=== PATIENT | female | born 2000 | race Caucasian/White ===

== ENCOUNTER 2020-09-10 20:09 | Emergency (ER) | payer OTHER, SELFPAY ==
--- NOTE | ~2020-09-10 | XR_ITS ---
EXAMINATION: XR ANKLE, LEFT CLINICAL INFORMATION: Fall COMPARISON: None TECHNIQUE: 4 plain film views of the left ankle. FINDINGS: Mild soft tissue swelling about the ankle slightly more so laterally. Underlying bony structures are unremarkable. No acute fracture or dislocation seen. Ankle mortise appears intact. XR/XR ankle LT 2V IMPRESSION: Soft tissue swelling but no acute bony abnormality.
[2020-09-10 20:52] VITALS: BP 126/68; PULSE 72; RESP 16; TEMP 36.7; O2SAT 95; BMI 29.7
--- NOTE | 2020-09-10 22:58 | ED_ITS ---
HPI - Extremity Injury (Lower) General Chief Complaint: Extremity Injury, Lower Stated Complaint: Fall Ankle Injury/Work Time Seen by Provider: 09/10/20 22:58 Related Data Allergies Allergy/AdvReac Type Severity Reaction Status Date / Time No Known Allergies Allergy Verified 09/10/20 20:56 [No Known Allergies*] Review of Systems Review of Systems: Constitutional : No Weight loss, No Fever, No Chills, No Night Sweats, No Fatigue, No Malaise ENT/Mouth : No Hearing loss, No Ear Pain, No Nasal Congestion, No Sinus Pain, No Hoarseness, No sore throat, No Rhinorrhea, No Swallowing Difficulty Eyes: No Eye Pain, No Swelling, No Redness, No Foreign Body, No Discharge, No Vision Changes Cardiovascular : No Chest Pain, No SOB, No Dyspnea on Exertion, No Orthopnea, No Edema, No Palpitations Respiratory : No Cough, No Sputum, No Wheezing, No Smoke Exposure, No Dyspnea Gastrointestinal : No Nausea, No Vomiting, No Diarrhea, No Constipation, No abdominal Pain, No Hematochezia, No Melena Genitourinary : no irregular bleeding, No Dysuria, No Urinary Frequency, No Hematuria, No Urinary Incontinence, No Urgency, No Flank Pain, No Urinary Flow Changes, No Hesitancy Musculoskeletal : Ankle pain, No Myalgias, No Joint Swelling Skin : No Skin Lesions, No rash Neuro : No Weakness, No Numbness, No Paresthesias, No Loss of Consciousness, No Dizziness, No Headache Psych : No Anxiety/Panic, No Depression, No SI/HI/AH/VH, No Social Issues, Heme/Lymph: No Bruising, No Bleeding,No Lymphadenopathy Endocrine : No Polyuria, No Polydipsia, No Temperature Intolerance Yes all other systems are reviewed and are negative [facility] Past Medical History Medical History (Updated 09/10/20 @ 23:32 by Diane Fairchild [facility]) No known health problems Social History Social History Advance Directives: No Advance Directives Information Provided: No Patient : No Physical Exam Vital Signs: Vital Signs: Last Vital Signs Temp 98.0 F 09/10/20 20:52 Pulse 72 09/10/20 20:52 Resp 16 09/10/20 20:52 BP 126/68 09/10/20 20:52 Pulse Ox 95 09/10/20 20:52 Body Mass Index 29.7 Const: General: healthy appearing, no acute distress and well developed Nutritional Appearance: well nourished Orientation/consciousness: patient oriented x3 Neck: Neck: Yes normal visual inspection, Yes full ROM and Yes trachea midline Thyroid: Thyroid normal Resp: Auscultation: clear to auscultation bilaterally Cardio: Rate: regular rate Rhythm: regular rhythm GI: Inspection: Yes normal to inspection and No distended Palpation (GI): No hepatosplenomegaly present Auscultation: normal bowel sounds Skin: General skin exam: elasticity normal, turgor normal and dry skin Neuro: General: patient oriented x3 Extrem: Other: Left ankle pain and tenderness. Course Course Course Narrative: 20 year old female after tripping at work and missing 2 steps, landing on her L ankle and twisting it. Pt reports that she is unable to bear weight, 10/10 pain . X-ray negative for any fracture will send pt home with albino wrap, ankle brace and crutches. Will send her home with Ibuprofen. Pt is agreeable to plan and verbalizes understanding of instructions on how to use the crutches and to ice her ankle for the first 72 hrs. MDM - Extremity Injury (Lower) Imaging Data Ankle x-ray: Radiologist's impression: FINDINGS: Mild soft tissue swelling about the ankle slightly more so laterally. Underlying bony structures are unremarkable. No acute fracture or dislocation seen. Ankle mortise appears intact. XR/XR ankle LT 2V IMPRESSION: Soft tissue swelling but no acute bony abnormality. Discharge Plan Discharge Clinical Impression: Ankle sprain and strain Patient Disposition: Home, Self-Care Instructions: Ankle Sprain (ED) Additional Instructions: You were seen here today after screening your ankle. You were given crutches to help you ambulate better. Please follow-up with your primary care doctor in 2-3 days you are given work note for the next 4 days. Please take ibuprofen and apply ice for the next 72 hours. Keep your leg up to improve circulation Stand Alone Forms: Work/School Release Interventions: ED Discharge Assessment Last Done: 09/11/20 00:06 Discharge Date/Time: 09/11/20 00:26
== END 2020-09-11 00:26 | disposition home or self-care (01) ==
PROVIDERS: Emergency Provider Student in an Organized Health Care Education/Training Program
DX: S93.402A Sprain of unspecified ligament of left ankle, initial encounter (principal); M25.572 Pain in left ankle and joints of left foot; W18.30XA Fall on same level, unspecified, initial encounter; Y93.9 Activity, unspecified; Y92.9 Unspecified place or not applicable; Y99.0 Civilian activity done for income or pay
CPT/HCPCS: 73600; 99283

== ENCOUNTER 2021-07-18 09:21 | Emergency (ER) | payer OTHER, SELFPAY ==
--- NOTE | ~2021-07-18 | CT_ITS ---
EXAMINATION: CT HEAD WITHOUT CONTRAST CLINICAL INFORMATION: Severe headache. COMPARISON: None TECHNIQUE: Contiguous axial imaging was performed from the skull base to vertex without intravenous administration of contrast. Additional 2-D coronal and sagittal reformatted images are generated on the CT workstation and uploaded to PACS. This CT examination was performed using dose optimization techniques as appropriate, variously including the following: *Automated exposure control *Adjustment of mA and/or kV according to patient size (this includes techniques or standardized protocols for targeted exams where dose is matched to indication/reason for exam; i.e. extremities or head) *Use of iterative reconstruction technique DLP: 743 mGy-cm FINDINGS: There is no intracranial hemorrhage, hematoma, or extra-axial fluid collection. The ventricles are normal in size. There is no hydrocephalus, edema, or mass effect. The hansen-white matter differentiation appears well preserved . There is no visible acute territorial infarct or mass lesion. The calvarium appears intact. There is no pneumocephalus or orbital emphysema. The visualized sinuses and middle ears and mastoid air cells show no significant mucosal thickening. There are no air-fluid levels. CT/CT head/brain wo con IMPRESSION: Normal noncontrast CT head.
--- NOTE | 2021-07-18 09:25 | ECG_ITS ---
Test Reason : cp Blood Pressure : / mmHG Vent. Rate : 083 BPM Atrial Rate : 083 BPM P-R Int : 134 ms QRS Dur : 080 ms QT Int : 382 ms P-R-T Axes : 047 023 021 degrees QTc Int : 448 ms Normal sinus rhythm Normal ECG No previous ECGs available Referred By: Generic ED Physician Electronically Signed By:Rebel Oconnell
[2021-07-18 09:54] VITALS: BP 115/85; PULSE 84; RESP 12; O2SAT 100; BMI 34.4
--- NOTE | 2021-07-18 10:06 | ED_ITS ---
HPI - Chest Pain General Chief Complaint: Chest Pain Stated Complaint: headache, chest pain Time Seen by Provider: 07/18/21 09:39 Source: patient Mode of arrival: ambulatory Limitations: no limitations History of Present Illness HPI narrative: 20 y/o female with history of seasonal allergies, acne recently on Accutane, presents to the ER with a persistent headache for the last 6 days. She recently stopped her Accutane on 07/07. She spoke with her doctor who was concerned about possible pseudotumor cerebri. She denies any vision changes, weakness, numbness, tingling. She states the headache is mostly pressure-like and behind her eyes. No relief with Motrin. She was supposed to see a Neurologist but developed c entral chest pain last night so came into the ED for further evaluation. She states the chest pain is sharp, constant and in the middle of her chest. Last night it radiated to her right lower ribs, no SOB, nausea, diaphoresis or dizziness. MD complaint: chest pain Onset (ago): day(s) (6) Timing of current episode: constant Prior episodes: Yes Onset: during rest Pain location: substernal Pain radiation: none Severity: moderate Pain scale (0-10): 6 Quality: sharp Relieving factors: nothing Exacerbating factors: nothing Treatment prior to arrival: none Risk Factors Coronary artery disease risk factors: none Thoracic aortic dissection risk factors: none Related Data On Oral Contraceptives: No Allergies Allergy/AdvReac Type Severity Reaction Status Date / Time No Known Allergies Allergy Verified 09/10/20 20:56 [No Known Allergies*] Review of Systems Review of Systems: Constitutional: No Fever, No Chills ENT/Mouth: No sore throat, No Rhinorrhea, No Swallowing Difficulty Eyes: No Eye Pain, No Swelling, No Redness, No vision changes Cardiovascular: + Chest Pain, No SOB, No Orthopnea, No Edema Respiratory: No Cough, No Sputum, No Wheezing, No dyspnea Gastrointestinal: No Nausea, No Vomiting, No Diarrhea, No abdominal Pain Genitourinary: No Dysuria, No Urinary Frequency, No Hematuria Musculoskeletal: No joint pain, No Myalgias Skin: No Skin Lesions, No rash Neuro: No Weakness, No Numbness, No Dizziness, + Headache Psych: + Anxiety/Panic, No Depression Heme/Lymph: No Bruising, No Lymphadenopathy Endocrine: No Polyuria, No Polydipsia PMFSH Past Medical History Medical History (Updated 07/18/21 @ 11:33 by MARÍA Grant) No known health problems Social History Social History Advance Directives: No Advance Directives Information Provided: No Physical Exam Vital Signs: Vital Signs: Last Vital Signs Temp 98.0 F 07/18/21 10:14 Pulse 70 07/18/21 10:14 Resp 16 07/18/21 10:14 BP 115/85 07/18/21 10:14 Pulse Ox 100 07/18/21 10:14 BMI result Body Mass Index 34.4 Appearance: Alert. Oriented X3. No acute distress. Eyes: Pupils equal, round and reactive to light. ENT: Pharynx normal. Neck: Normal inspection. Neck supple. CVS: Normal heart rate and rhythm. Pulses normal. Respiratory: No respiratory distress. Breath sounds normal. Abdomen: Soft and nontender. +BS x4 Skin: Skin warm and dry. Normal skin color. Normal skin turgor. No rashes. Extremities: No lower extremity edema. No calf tenderness. Neuro: Oriented X 3. No motor deficit. No sensory deficit. Course Course Course Narrative: 20-year-old female presents to the ER with 6 days of a headache behind her eyes along with chest pain that developed last night. Her PCP was concern for pseudotumor cerebri given she just came off of Accutane. She has no blurry vision or vision changes. Her neuro exam is nonfocal and normal. Will get CT head, lab workup and reassess. Reevaluation(s) Reevaluation #1: CT head is normal. D-dimer negative. Labs unremarkable EKG is normal. At this time she is stable for discharge home with plan to follow-up with her PCP. Her PCP is post to refer her to a neurologist, will give name of our neurologist here to see if she can be seen as well. Patient agrees with plan. Stable for discharge home. MDM - Chest Pain Medical Records Data Attestation: I reviewed the patient's medical records. Lab Data Attestation: I reviewed the patient's lab results. Result diagrams: 07/18/21 10:10 07/18/21 10:10 Labs: Lab Results 07/18/21 07/18/21 07/18/21 Range/Units 10:10 10:10 10:10 WBC 7.2 (4.8-10.8) X10*3/uL RBC 4.76 (4.20-5.50) X10*6/uL Hgb 13.4 (12.0-16.0) g/dl Hct 41.3 (37.0-47.0) % MCV 86.8 (80.0-98.0) fL MCH 28.2 (27.0-33.0) pg MCHC 32.4 (31.0-35.0) g/dl RDW 12.6 (11.0-16.0) % Plt Count 255 (160-400) X10*3/uL MPV 9.4 (9.4-12.3) fL Immature Gran % (Auto) 0.3 (0.0-0.4) % Neut % (Auto) 59.4 (45-73) % Lymph % (Auto) 28.4 (20-40) % [place] % (Auto) 9.6 (2-11) % Eos % (Auto) 1.9 (0-4) % Baso % (Auto) 0.4 (0-2) % Lymph # (Auto) 2.1 (1.2-4.9) X10*3/uL [place] # (Auto) 0.7 (0.1-1.2) X10*3/uL Eos # (Auto) 0.1 (0.0-0.4) X10*3/uL Baso # (Auto) 0.0 (0.0-0.2) X10*3/uL Abs Immat Gran (auto) 0.02 (0.00-0.03) X10*3/uL Absolute Neuts (auto) 4.3 (2.0-8.3) x10*3/uL Absolute Nucleated RBC 0.000 (0.0-0.012) X10*3/uL Nucleated RBC % (auto) 0.0 (0.0-0.2) /100WBC D-Dimer High Sensitivty NG/ML Sodium (135-145) mmol/L Potassium (3.3-5.1) mmol/L Chloride (96-108) mmol/L Carbon Dioxide (22-29) mmol/L Anion Gap (12-20) BUN (9-16) mg/dL Creatinine (0.5-1.4) mg/dL Estim Creat Clear Calc Estimated GFR Random Glucose (60-115) mg/dL Calcium (8.4-10.2) mg/dL Magnesium (1.6-2.6) mg/dL Total Bilirubin (0.0-1.0) mg/dL Direct Bilirubin (0.0-0.5) mg/dL AST (5-31) U/L ALT (0-31) U/L Alkaline Phosphatase (39-117) U/L Troponin I High Sens (<3.5-17.0) ng/L Total Protein (6.5-8.0) g/dL Albumin (3.5-5.0) g/dL COVID-19 (LELO) Negative (Negative) COVID-19 Clin Com See Note Influenza Type A (JANICE) Negative (Negative) Influenza Type B (JANICE) Negative (Negative) Influenza A & B Note See Note 07/18/21 07/18/21 07/18/21 Range/Units 10:10 10:10 10:10 WBC (4.8-10.8) X10*3/uL RBC (4.20-5.50) X10*6/uL Hgb (12.0-16.0) g/dl Hct (37.0-47.0) % MCV (80.0-98.0) fL MCH (27.0-33.0) pg MCHC (31.0-35.0) g/dl RDW (11.0-16.0) % Plt Count (160-400) X10*3/uL MPV (9.4-12.3) fL Immature Gran % (Auto) (0.0-0.4) % Neut % (Auto) (45-73) % Lymph % (Auto) (20-40) % [place] % (Auto) (2-11) % Eos % (Auto) (0-4) % Baso % (Auto) (0-2) % Lymph # (Auto) (1.2-4.9) X10*3/uL [place] # (Auto) (0.1-1.2) X10*3/uL Eos # (Auto) (0.0-0.4) X10*3/uL Baso # (Auto) (0.0-0.2) X10*3/uL Abs Immat Gran (auto) (0.00-0.03) X10*3/uL Absolute Neuts (auto) (2.0-8.3) x10*3/uL Absolute Nucleated RBC (0.0-0.012) X10*3/uL Nucleated RBC % (auto) (0.0-0.2) /100WBC D-Dimer High Sensitivty < 150 NG/ML Sodium 139 (135-145) mmol/L Potassium 4.4 (3.3-5.1) mmol/L Chloride 107 (96-108) mmol/L Carbon Dioxide 26 (22-29) mmol/L Anion Gap 10 L (12-20) BUN 7 L (9-16) mg/dL Creatinine 0.78 (0.5-1.4) mg/dL Estim Creat Clear Calc 137.3 Estimated GFR > 60 Random Glucose 100 (60-115) mg/dL Calcium 9.3 (8.4-10.2) mg/dL Magnesium 1.9 (1.6-2.6) mg/dL Total Bilirubin 0.3 (0.0-1.0) mg/dL Direct Bilirubin < 0.2 (0.0-0.5) mg/dL AST 22 (5-31) U/L ALT 34 H (0-31) U/L Alkaline Phosphatase 56 (39-117) U/L Troponin I High Sens < 3.5 (<3.5-17.0) ng/L Total Protein 7.3 (6.5-8.0) g/dL Albumin 4.0 (3.5-5.0) g/dL COVID-19 (LELO) (Negative) COVID-19 Clin Com Influenza Type A (JANICE) (Negative) Influenza Type B (JANICE) (Negative) Influenza A & B Note ECG Data ECG #1: Attestation: I personally reviewed and interpreted this ECG as follows: ECG interpretation date: 07/18/21 ECG interpretation time: 12:21 Prior ECG tracings: available for review Interpretation: Normal sinus rhythm, HR 83 bpm, [place] interval, normal QTc, no St segment elevations or depressions Critical Care Time Critical Care Time Critical Care Time: No Discharge Plan Discharge Clinical Impression: Headache Patient Disposition: Home, Self-Care Instructions: General Headache (ED) Additional Instructions: Your CT head was normal. Your labs were normal. You are negative for COVID and Flu. Your EKG was normal. Recommend Excedrin Migraine for your headaches. Recommend following up with your primary care provider and Neurology - name and number below. If you develop new or worsening symptoms call 911 or come back to the ER for further evaluation. Referrals: Giselle Washington MD [Physician] - 1 week (headache s/p accutane)
[2021-07-18 10:14] VITALS: BP 115/85; PULSE 70; RESP 16; TEMP 36.7; O2SAT 100
[2021-07-18 10:17] LABS: MANUAL DIFF FLAG NO
[2021-07-18 10:25] LABS: Basophils Percent Auto 0.4 % (0-2); Eosinophils Absolute Auto 0.1 X10*3/uL (0.0-0.4); Eosinophils Percent Auto 1.9 % (0-4); Hematocrit 41.3 % (37.0-47.0); Hemoglobin 13.4 g/dl (12.0-16.0); Imm Gran Abs Auto 0.02 X10*3/uL (0.00-0.03); Imm Gran Pct Auto 0.3 % (0.0-0.4); Lymphocytes Absolute Auto 2.1 X10*3/uL (1.2-4.9); Lymphocytes Percent Auto 28.4 % (20-40); Mean Corpuscular HGB Conc 32.4 g/dl (31.0-35.0); Mean Corpuscular Hemoglobin 28.2 pg (27.0-33.0); Mean Corpuscular Volume 86.8 fL (80.0-98.0); Mean Platelet Volume 9.4 fL (9.4-12.3); Monocytes Absolute Auto 0.7 X10*3/uL (0.1-1.2); Monocytes Percent Auto 9.6 % (2-11); Neutrophils Absolute Auto 4.3 x10*3/uL (2.0-8.3); Neutrophils Percent Auto 59.4 % (45-73); Platelet Count 255 X10*3/uL (160-400); Red Blood Count 4.76 X10*6/uL (4.20-5.50); Red Cell Distribution Width 12.6 % (11.0-16.0); White Blood Count 7.2 X10*3/uL (4.8-10.8)
[2021-07-18 10:28] LABS: D Dimer High Sensitivity < 150 NG/ML
[2021-07-18 10:36] LABS: Alanine Aminotransferase 34 U/L (0-31); Alkaline Phosphatase 56 U/L (39-117); Anion Gap 10 (12-20); Aspartate Amino Transferase 22 U/L (5-31); Bilirubin Direct < 0.2 mg/dL (0.0-0.5); Bilirubin Total 0.3 mg/dL (0.0-1.0); Blood Urea Nitrogen 7 mg/dL (9-16); Calcium 9.3 mg/dL (8.4-10.2); Carbon Dioxide 26 mmol/L (22-29); Chloride 107 mmol/L (96-108); Creatinine Clr Calc Pharmacy 137.3; Estimated Glomerular Filt Rate > 60; Glucose Random 100 mg/dL (60-115); Magnesium 1.9 mg/dL (1.6-2.6); Potassium 4.4 mmol/L (3.3-5.1); Sodium 139 mmol/L (135-145); Total Protein 7.3 g/dL (6.5-8.0)
[2021-07-18 10:43] LABS: Troponin-I High Sensitivity < 3.5 ng/L (<3.5-17.0)
[2021-07-18 10:53] LABS: Influenza A Negative (Negative); Influenza B2 Negative (Negative)
[2021-07-18 11:08] LABS: COVID-19 Test Negative (Negative)
[2021-07-18] MEDS: Butalb/Acetamin/Caff 50/325/40 TABLET 1 TAB PO (12:18)
--- NOTE | 2021-07-18 12:56 | PC.NURSE ---
OK FOR DC PER PRIMARY RN. PT AWAKE, ALERT AND ORIENTED X 3. SKIN WARM AND DRY. RESP UNLABORED. DENIES N/V. NO C/O PAIN. NEUROS INTACT. NO ACUTE DISTRESS NOTED. PLAN IS FOR DC HOME. PT AGREEABLE TO PLAN
== END 2021-07-18 12:58 | disposition home or self-care (01) ==
PROVIDERS: Physician Assistant; Emergency Provider Emergency Medicine
DX: R51.9 Headache, unspecified (principal); Z20.822 Contact with and (suspected) exposure to COVID-19
CPT/HCPCS: 36415; 70450; 80048; 80076; 83735; 84484; 85025; 85379; 87502; 87635; 93005; 99284

== ENCOUNTER 2021-09-29 15:23 | Outpatient (REF) | payer OTHER, SELFPAY ==
[2021-09-29 15:39] LABS: MANUAL DIFF FLAG NO
[2021-09-29 15:50] LABS: Basophils Percent Auto 0.5 % (0-2); Eosinophils Absolute Auto 0.1 X10*3/uL (0.0-0.4); Eosinophils Percent Auto 1.8 % (0-4); Hematocrit 40.6 % (37.0-47.0); Hemoglobin 13.7 g/dl (12.0-16.0); Imm Gran Abs Auto 0.02 X10*3/uL (0.00-0.03); Imm Gran Pct Auto 0.3 % (0.0-0.4); Lymphocytes Absolute Auto 2.6 X10*3/uL (1.2-4.9); Lymphocytes Percent Auto 33.8 % (20-40); Mean Corpuscular HGB Conc 33.7 g/dl (31.0-35.0); Mean Corpuscular Hemoglobin 29.1 pg (27.0-33.0); Mean Corpuscular Volume 86.4 fL (80.0-98.0); Mean Platelet Volume 9.4 fL (9.4-12.3); Monocytes Absolute Auto 0.6 X10*3/uL (0.1-1.2); Monocytes Percent Auto 7.5 % (2-11); Neutrophils Absolute Auto 4.4 x10*3/uL (2.0-8.3); Neutrophils Percent Auto 56.1 % (45-73); Platelet Count 279 X10*3/uL (160-400); Red Cell Distribution Width 12.8 % (11.0-16.0); White Blood Count 7.8 X10*3/uL (4.8-10.8)
[2021-09-29 16:07] LABS: Alanine Aminotransferase 39 U/L (0-31); Albumin Level 4.3 g/dL (3.5-5.0); Alkaline Phosphatase 64 U/L (39-117); Anion Gap 11 (12-20); Aspartate Amino Transferase 27 U/L (5-31); Bilirubin Total 0.5 mg/dL (0.0-1.0); Blood Urea Nitrogen 9 mg/dL (9-16); C Reactive Protein 0.21 mg/dL (< or = 0.50); Calcium 9.2 mg/dL (8.4-10.2); Carbon Dioxide 26 mmol/L (22-29); Chloride 106 mmol/L (96-108); Cholesterol 148 mg/dL; Estimated Glomerular Filt Rate > 60; Glucose Random 90 mg/dL (60-115); HDL Cholesterol 39 mg/dL; LDL Cholesterol Calculated 94 mg/dl; Sodium 139 mmol/L (135-145); Total Protein 7.5 g/dL (6.5-8.0); Triglycerides 78 mg/dL
[2021-09-29 16:27] LABS: Free T4 (Free Thyroxine) 1.04 ng/dL (0.71-1.85); Thyroid Stimulating Hormone 0.68 uIU/mL (0.32-4.0)
== END 2021-09-29 15:24 | disposition home or self-care (01) ==
LOC: HO.LAB 15:23
PROVIDERS: PCP Internal Medicine; Visit Provider Internal Medicine
DX: Z00.00 Encounter for general adult medical examination without abnormal findings (principal)
CPT/HCPCS: 36415; 80053; 80061; 84439; 84443; 85025; 86140

== ENCOUNTER 2022-04-20 10:17 | Outpatient (REF) | payer OTHER, SELFPAY ==
[2022-04-20 13:38] LABS: MANUAL DIFF FLAG NO
[2022-04-20 13:42] LABS: Basophils Percent Auto 0.5 % (0-2); Eosinophils Absolute Auto 0.2 X10*3/uL (0.0-0.4); Eosinophils Percent Auto 2.4 % (0-4); Hematocrit 40.9 % (37.0-47.0); Hemoglobin 13.4 g/dl (12.0-16.0); Imm Gran Abs Auto 0.02 X10*3/uL (0.00-0.03); Imm Gran Pct Auto 0.3 % (0.0-0.4); Lymphocytes Absolute Auto 2.2 X10*3/uL (1.2-4.9); Lymphocytes Percent Auto 29.6 % (20-40); Mean Corpuscular HGB Conc 32.8 g/dl (31.0-35.0); Mean Corpuscular Hemoglobin 28.8 pg (27.0-33.0); Mean Corpuscular Volume 87.8 fL (80.0-98.0); Monocytes Absolute Auto 0.7 X10*3/uL (0.1-1.2); Monocytes Percent Auto 9.5 % (2-11); Neutrophils Absolute Auto 4.3 x10*3/uL (2.0-8.3); Neutrophils Percent Auto 57.7 % (45-73); Platelet Count 304 X10*3/uL (160-400); Red Blood Count 4.66 X10*6/uL (4.20-5.50); Red Cell Distribution Width 12.6 % (11.0-16.0); White Blood Count 7.5 X10*3/uL (4.8-10.8)
[2022-04-20 13:47] LABS: IDNOW Serial# 6674DD1D; Strep A Nucleic Acid Negative (Negative)
[2022-04-20 13:54] LABS: Alanine Aminotransferase 21 U/L (0-31); Aspartate Amino Transferase 18 U/L (5-31)
[2022-04-20 14:14] LABS: Monotest Negative (Negative)
== END 2022-04-20 10:18 | disposition home or self-care (01) ==
LOC: HO.10HDL 10:17
PROVIDERS: Visit Provider Internal Medicine
DX: J02.9 Acute pharyngitis, unspecified (principal); R53.83 Other fatigue
CPT/HCPCS: 36415; 84450; 84460; 85025; 86308; 87651

== ENCOUNTER 2022-09-20 08:30 | Emergency (ER) | payer OTHER, SELFPAY ==
[2022-09-20 08:54] VITALS: BP 139/77; PULSE 76; RESP 16; TEMP 37; O2SAT 98; BMI 34.5
--- NOTE | 2022-09-20 09:11 | ED.GENADULT ---
HPI - General Adult General Chief complaint: Skin/Abscess/Foreign Body Stated complaint: lump under r arm Time Seen by Provider: 09/20/22 09:11 Source: patient Limitations: no limitations History of Present Illness HPI narrative: Patient presents to the ER with a right axilla question abscess. Onset over the past few days. Patient has had similar episodes in the past but they resolved on their own or more much smaller Patient denies any discharge from a axillar abscess at this time. Patient is without fever chills nausea vomiting. Symptoms mild to moderate. Patient denies fever chills any other complaints this time symptoms have worsened over 24 hours. Related Data Previous Rx's Medication Instructions Recorded doxycycline hyclate 100 mg tablet 100 mg PO BID #14 tabs 09/20/22 mupirocin 2 % topical ointment 1 appl topical BID #15 grams 09/20/22 Allergies Allergy/AdvReac Type Severity Reaction Status Date / Time No Known Allergies Allergy Verified 09/10/20 20:56 [No Known Allergies*] Review of Systems Review of Systems: General: No fever, no chills Cardiovascular: No chest pain Muscle skeletal: No malaise, no back pain, no neck pain, no extremity pain Skin: Right axilla abscess no rash PMFSH Past Medical History Attestation statement: The following information was validated with the patient. Medical History No known health problems Social History Social History Advance Directives: No Physical Exam ED Vital Signs: Vital Signs - 24 hr 09/20/22 08:54 Temperature 98.6 F Pulse Rate 76 Respiratory Rate 16 Blood Pressure 139/77 Pulse Oximetry 98 Oxygen Delivery Method Room Air BMI result Body Mass Index 34.5 General appearance: Awake, alert, cooperative, in no acute distress Skin: Right axilla small abscess noted slight fluctuance no induration erythema externally. Eyes: PERRL, EOMI, no icterus ENT: Oropharynx normal, uvula midline Neck: Trachea midline Pulmonary: no accessory muscle use Extremities: No deformity, nontender, no peripheral edema noted Neuro: Alert oriented x3, no focal deficit Psych: Normal affect Course Course Course Narrative: Right axillar abscess Folliculitis Cellulitis 22-year-old female with an obvious small right axillar abscess that is not draining at this time no external erythema induration noted. Case discussed at length with patient about options of antibiotics with warm compresses verses needle aspiration versus opening the abscess at this time. Decision is made to neck size the area in trying needle aspirate of the small abscess in the right axilla will plan to discharge patient home on oral antibiotics 09:58 Right axillar abscess cleaned with Betadine saline Next status with 1% lidocaine Needle aspirate attended small amount of purulent discharge 11 blade insertion small amount of purulent discharge no packing placed Patient tolerated procedure well Patient is currently on Keflex for UTI will give doxycycline for 1 week. Discharge Plan Discharge Clinical Impression: Abscess of skin or subcutaneous tissue Patient Disposition: Home, Self-Care Instructions: Abscess (ED), Abscess Incision and Drainage (DC) Additional Instructions: Warm compresses 3 to 4 times a day Antibiotics as directed If increased swelling pain return to the ER Call PCP for follow-up Prescriptions: New doxycycline hyclate 100 mg tablet 100 mg PO BID Qty: 14 0RF mupirocin 2 % ointment 1 appl topical BID Qty: 15 0RF Stand Alone Forms: Work/School Release
== END 2022-09-20 10:45 | disposition home or self-care (01) ==
PROVIDERS: Emergency Provider Emergency Medicine; PCP Internal Medicine
DX: L02.11 Cutaneous abscess of neck (principal)
CPT/HCPCS: 10060; 99282; 99283

== ENCOUNTER 2023-03-31 15:33 | Emergency (ER) | payer OTHER, SELFPAY ==
[2023-03-31 15:53] VITALS: BP 136/71; PULSE 98; RESP 18; TEMP 37.6; O2SAT 96; BMI 36.1
--- NOTE | 2023-03-31 15:54 | ED_ITS ---
HPI - General Adult General Chief complaint: Upper Respiratory Symptoms Stated complaint: bodyaches,headache,nausea Time Seen by Provider: 03/31/23 16:30 Source: patient Mode of arrival: ambulatory Limitations: no limitations History of Present Illness HPI narrative: Patient is a 22 year old female who presents emergency department for evaluation of body aches, sore throat, nausea, diarrhea, headache. Symptom onset last night with just a sore throat. Progressively worse today. Denies fever, chills. Reports over the past year, having multiple infections, swollen tonsils, saw ENT and was advised she didn't have strep enough to remove them . Related Data Previous Rx's Medication Instructions Recorded doxycycline hyclate 100 mg tablet 100 mg PO BID #14 tabs 09/20/22 mupirocin 2 % topical ointment 1 appl topical BID #15 grams 09/20/22 amoxicillin 500 mg tablet 1,000 mg (2 x 500 mg) PO DAILY 10 03/31/23 days #20 tabs Allergies Allergy/AdvReac Type Severity Reaction Status Date / Time No Known Allergies Allergy Verified 09/10/20 20:56 [No Known Allergies*] Review of Systems Review of Systems: Yes all other systems are reviewed and are negative PMFSH Past Medical History Attestation statement: The following information was validated with the patient. Source: old records reviewed Medical History No known health problems Physical Exam ED Vital Signs: Vital Signs - 24 hr 03/31/23 15:53 Temperature 99.7 F Pulse Rate 98 Respiratory Rate 18 Blood Pressure 136/71 Pulse Oximetry 96 Oxygen Delivery Method Room Air BMI result Body Mass Index 36.1 Appearance: Alert.?Oriented to person, place and time. No acute distress.?Normal affect. Eyes: Pupils equal, round and reactive to light.? ENT: TM normal bilaterally. Pharynx with 3+ tonsillar hypertrophy bilaterally, exudates white, uvula midline, no trismus, no drooling? Neck: Normal inspection.? Neck supple.??No cervical adenopathy CVS: Heart sounds normal. Normal heart rate and rhythm.? Pulses normal.?? Respiratory: No respiratory distress.? Lung sounds clear to auscultation bilaterally?? Abdomen: Soft and non-tender. Normoactive bowel sounds. Skin: Skin warm and dry.? Normal skin color.? ? Extremities: No lower extremity edema.? Neuro: Moves all extremities spontaneously. Sensation intact bilaterally. No motor deficits. Ambulates with normal steady gait. Course Course Course Narrative: This is an RME: Additional HPI, ROS, PE not included below will be deferred to primary provider. Patient is a 22 year old female who presents emergency department for evaluation of body aches, sore throat, nausea, diarrhea, headache. Symptom onset last night with just a sore throat. Progressively worse today. Denies fever, chills. Reports over the past year, having multiple infections, swollen tonsils, saw ENT and was advised she didn't have strep enough to remove them . Exam: Symmetrical tonsillar hypertrophy bilaterally with exudates. Uvula midline. No trismus. No drooling. Plan: Viral testing, Strep A Medical Decision Making Medical Decision Making MDM Narrative: Patient is a 22 old female, presenting for evaluation of upper respiratory sympt oms. COVID-19 testing negative. Influenza testing negative. Strep A testing is positive, will send treatment of amoxicillin to pharmacy. At this time history and physical exam not consistent with pneumonia, peritonsillar/retropharyngeal abscess. Well-appearing, nontoxic, afebrile, no tachycardia or tachypnea/hypoxia. Speaking clear full sentences, ambulatory with steady gait. Discussed additional conservative treatment including rest, hydration, Tylenol/ibuprofen as needed for fever and body aches, saline nasal spray, humidifier, [id number] cold medication. Advised to follow-up with primary care provider as needed, discussed reasons to return back to the emergency department. All questions were answered. Patient discharged home in stable condition. Differential Diagnosis Differential Diagnoses: The differential diagnosis associated with the presentation includes (As noted above) Admission/Observation Consideration of admission/observation: Escalation of care including admission/observation considered (As noted above) Lab Data [facility] Lab Attestation statement: I reviewed the patient's lab results. (As noted above) Labs: Lab Results 03/31/23 Range/Units 15:59 COVID-19 (LELO) Negative (Negative) COVID-19 Clin Com See Note Influenza Type A (JANICE) Negative (Negative) Influenza Type B (JANICE) Negative (Negative) Influenza A & B Note See Note S. pyogenes GrpA JANICE Positive A (Negative) Independent Historian Clinical information obtained from an independent historian. History obtained from or confirmed by: Spouse (Confirms history) External Record Review External record reviewed: Outpatient record Tests considered The following testing was considered but not selected: CXR deferred. Prescription Management I considered prescription management with: Antibiotic Discharge Plan Discharge Clinical Impression: Acute streptococcal pharyngitis Patient Disposition: Home, Self-Care Instructions: Strep Throat (ED) Prescriptions: New amoxicillin 500 mg tablet 1,000 mg PO DAILY 10 Days Qty: 20 0RF No Action doxycycline hyclate 100 mg tablet 100 mg PO BID Qty: 14 0RF mupirocin 2 % ointment 1 appl topical BID Qty: 15 0RF Referrals: Edmundo Hameed MD [Primary Care Provider] - Discharge Date/Time: 03/31/23 16:47
[2023-03-31 16:16] LABS: IDNOW Serial# 58CA691E; Strep A Nucleic Acid Positive (Negative)
[2023-03-31 16:30] LABS: COVID-19 Test Negative (Negative); IDNOW Serial# 58CA691E
[2023-03-31 16:33] LABS: IDNOW Serial# BCCEAD1C; Influenza A Negative (Negative); Influenza B2 Negative (Negative)
--- OUTSIDE RECORDS SUMMARY | 2023-03-31 16:39 | XMS_ITS | Continuity of Care Document ---
Author Name Unknown Organization [facility] Address Unknown Care Team Providers Care Nurses Educator Name Role Phone Corey RODRIGUEZ, Kirsten Grimaldo Primary Care Physician Encounter [facility] [place] Date(s): 07/18/21 - 08/17/21 [facility] Allergies, Adverse Reactions, Alerts No Known Allergies
--- OUTSIDE RECORDS SUMMARY | 2023-03-31 16:40 | XMS_ITS | Continuity of Care Document ---
Author Name Unknown Organization [facility] Address [address] [place] [address]- Care Team Providers Care Manager Mba Name Role Phone Kirsten Nicole MD Primary Care Physician [phone] Encounter [facility] Date(s): 11/29/20 - 12/29/20 [facility] [address], [place] [address] Attending Physician: [id number] Admitting Physician: Admtr, Ar8 Referring Physician: Admtr, Ar8 Allergies, Adverse Reactions, Alerts Substance Reaction Severity Status NKA Active
--- OUTSIDE RECORDS SUMMARY | 2023-03-31 16:40 | XMS_ITS | Continuity of Care Document ---
Author Name Unknown Organization [facility] Address [address] [place] [address]- Care Team Providers Care Cellar Pumper Name Role Phone Kirsten Nicole MD Primary Care Physician [phone] Encounter [facility] Date(s): 05/25/19 - 06/04/19 [facility] [address] [place] [address]- [facility] Attending Physician: Admtr, Ar8 Admitting Physician: Admtr, Ar8 Referring Physician: Admtr, Ar8 Allergies, Adverse Reactions, Alerts Substance Reaction Severity Status NKA Active
--- OUTSIDE RECORDS SUMMARY | 2023-03-31 16:40 | XMS_ITS | Continuity of Care Document ---
Author Name Unknown Organization [facility] Address Unknown Care Team Providers Care Business Excellence Leader Name Role Phone Corey RODRIGUEZ, Kirsten Grimaldo Primary Care Physician [place] [facility] [place] 09/22[place]21 - 09/29/21 [facility] Attending Physician: Not on Staff, Attending MD Referring Physician: Robert Gilbert MD Allergies, Adverse Reactions, Alerts No Known Allergies Medications No Known Medications Problem List Condition Effective Dates Status Health Status Inform ant Obese class II(Confirmed) Active Vital Signs Most recent to oldest [Reference Range]: 1 Height 169 cm (09/22/21 3:07 PM) Weight 108.3 kg (09/22/21 3:07 PM) Oxygen Saturation [94-100 %] 98 % (09/22/21 3:07 PM) Pulse Rate [55-90 bpm] 79 bpm (09/22/21 3:07 PM) Body Mass Index [18.5-24.99] 37.92 *>HHI* (09/22/21 3:07 PM) Blood Pressure [90-138/55-84 mm Hg] 127/ 72mm Hg (09/22/21 3:07 PM) Blood pressure sites Arm, left (09/22/21 3:07 PM)
--- OUTSIDE RECORDS SUMMARY | 2023-03-31 16:40 | XMS_ITS | Continuity of Care Document ---
Author Name Unknown Organization [facility] Address Unknown Care Team Providers Care Squad Sergeant Name Role Phone Corey RODRIGUEZ, Kirsten Grimaldo Primary Care Physician Encounter [facility] [place] Date(s): 09/22/21 - 10/22/21 [facility] Attending Physician: Jeanie Reich Admitting Physician: Jeanie Reich Referring Physician: Jeanie Reich Allergies, Adverse Reactions, Alerts No Known Allergies Problem List Condition Effective Dates Status Health Status Inform ant Obese class II(Confirmed) Active
--- OUTSIDE RECORDS SUMMARY | 2023-03-31 16:40 | XMS_ITS | Continuity of Care Document ---
Author Name Unknown Organization [facility] Address [address] [place] [address]- Care Team Providers Care Cane Packer Name Role Phone Kirsten Nicole MD Primary Care Physician [place] [facility] [place] 11/29/20 - 12/06/20 [facility] [address], [place] [address] Encounter Diagnosis TMJ inflammation(Discharge Diagnosis) - 11/29/20 Attending Physician: Rafael Giles DO Referring Physician: Kirsten Nicole MD Allergies, Adverse Reactions, Alerts Substance Reaction Severity Status NKA Active Medications naproxen 500 mg oral tablet 1 tablet = 500 mg, By Mouth, 2 times a day, PRN Pain , Moderate, for 14 days, with food, # 30 tablet, 0 Refills, Acute 12/13/20 17:28:00 EDT, 11/29/20 17:28:00 EDT, Tablet, [id number], Partial fill upon patient request if the prescription is f... Start Date: 11/29/20 Stop Date: 12/13/20 Status: Ordered Problem List Diagnosis Diagnosis Type Effective Dates Health Status Clinical Service Informant TMJ inflammation Discharge Diagnosis 11/29/20 Vital Signs Most recent to oldest [Reference Range]: 1 Oxygen Saturation [94-100 %] 100 % (11/29/20 5:03 PM) Pulse Rate [55-90 bpm] 90 bpm (11/29/20 5:03 PM) Blood Pressure [90-138/55-84 mm Hg] 127/ 63mm Hg (11/29/20 5:03 PM) Respiratory Rate [16-30 br/min] 18 br/mi n (11/29/20 5:03 PM) Temperature [96.8-100.4 DegF] 98.1 DegF (11/29/20 5:03 PM) Mode of Delivery (Oxygen) Room air (11/29/20 5:03 PM) Blood pressure sites Arm, right (11/29/20 5:03 PM) Temperature Route Temporal (11/29/20 5:03 PM)
== END 2023-03-31 16:47 | disposition home or self-care (01) ==
PROVIDERS: Nurse Practitioner Family; Emergency Provider Emergency Medicine; PCP Internal Medicine
DX: J02.0 Streptococcal pharyngitis (principal); Z11.52 Encounter for screening for COVID-19
CPT/HCPCS: 87502; 87635; 87651; 99282; 99283

== ENCOUNTER 2023-04-08 01:43 | Emergency (ER) | payer OTHER, SELFPAY ==
--- NOTE | ~2023-04-08 | XR_ITS ---
EXAMINATION: XR FINGER, RIGHT CLINICAL INFORMATION: Laceration to the right hand third finger COMPARISON: None available. TECHNIQUE: PA view of the right hand, oblique and lateral views of the right hand third finger. FINDINGS: There is no evidence of acute fracture or dislocation. No focal erosion. No radiopaque foreign body or soft tissue air is noted. XR/XR finger RT min 2V IMPRESSION: No acute osseous abnormality in the right hand third finger. Remainder of the visualized osseous structures grossly appear unremarkable.
[2023-04-08 02:36] VITALS: BP 119/81; PULSE 85; RESP 17; TEMP 36.7; O2SAT 98; BMI 35.9
[2023-04-08 04:07] VITALS: BP 114/92; PULSE 60; TEMP 36.3; O2SAT 100
--- NOTE | 2023-04-08 08:14 | ED.GENADULT ---
HPI - General Adult General Chief complaint: Wound/Laceration Stated complaint: Finger Lac Time Seen by Provider: 04/08/23 08:03 History of Present Illness HPI narrative: The patient is a 22-year-old female who was preparing food last night. Around 18:00 she was slicing onions. She accidentally sliced off a small sliver to the skin of the pad of her right middle finger. The wound was not deep but a blood persistently until she finally came to the emergency department because of ongoing bleeding. Related Data Previous Rx's Medication Instructions Recorded doxycycline hyclate 100 mg tablet 100 mg PO BID #14 tabs 09/20/22 mupirocin 2 % topical ointment 1 appl topical BID #15 grams 09/20/22 amoxicillin 500 mg tablet 1,000 mg (2 x 500 mg) PO DAILY 10 03/31/23 days #20 tabs Allergies Allergy/AdvReac Type Severity Reaction Status Date / Time No Known Allergies Allergy Verified 09/10/20 20:56 [No Known Allergies*] Review of Systems Review of Systems: Yes all other systems are reviewed and are negative [facility] Past Medical History Medical History No known health problems Social History Social History Advance Directives: No Advance Directives Information Provided: No Physical Exam ED Vital Signs: Vital Signs - 24 hr 04/08/23 02:36 04/08/23 04:07 Temperature 98.1 F 97.3 F Pulse Rate 85 60 Respiratory Rate 17 Blood Pressure 119/81 114/92 H Pulse Oximetry 98 100 Oxygen Delivery Method Room Air Room Air BMI result Body Mass Index 35.9 Const Other: The patient is awake, alert, pleasant, cooperative. She does not appear in any distress. Skin Other: There is an avulsion to the skin of the pad of the finger that is less than 1 cm squared. There was some slight weeping of blood from the wound. The wound is not a full-thickness injury. He Medical Decision Making Medical Decision Making MDM Narrative: Patient presents with a finger tip avulsion injury that occurred when she was peeling vegetables. The wound but with persistent bleeding. The wound is small, less than 1 sq cm. There was still some minor oozing of bleeding despite a weight of several hours in the emergency room waiting room. I therefore applied Surgicel after cleaning the wound. I then used a Kerlix to wrap around the a Surgicel and then taped the Kerlix. I discussed wound care management with the patient and she will be discharged. There was some additional Surgicel in Kerlix that I was able to send with her that she may use if she needs to at home as a re-application. Discharge Plan Discharge Clinical Impression: Avulsion of skin Patient Disposition: Home, Self-Care Additional Instructions: The wound you have is not deep, but the angle of the wound is such that these wounds often bleed who persistently. A special dressing called Surgicel was applied to the wound to help stop bleeding. There was additional gauze wrapped around the Surgicel. Recommend keeping the wound covered with Surgicel for a few days. Ultimately you can use cold tap water to soak the Surgicel off the wound. If you need to apply additional Surgicel you have some extra that you may reapply. Contact your regular doctor for questions or return to the emergency room is significantly worse. Prescriptions: No Action amoxicillin 500 mg tablet 1,000 mg PO DAILY 10 Days Qty: 20 0RF doxycycline hyclate 100 mg tablet 100 mg PO BID Qty: 14 0RF mupirocin 2 % ointment 1 appl topical BID Qty: 15 0RF Referrals: Edmundo Hameed MD [Primary Care Provider] - (Avulsion injury to the tip of finger)
== END 2023-04-08 08:24 | disposition home or self-care (01) ==
PROVIDERS: Emergency Provider Emergency Medicine; PCP Internal Medicine
DX: S61.212A Laceration without foreign body of right middle finger without damage to nail, initial encounter (principal); W26.0XXA Contact with knife, initial encounter; Y93.G1 Activity, food preparation and clean up; Y92.000 Kitchen of unspecified non-institutional (private) residence as the place of occurrence of the external cause; Y99.9 Unspecified external cause status
CPT/HCPCS: 12001; 73140; 99282; 99283

== ENCOUNTER 2023-08-02 16:52 | Outpatient (REF) | payer OTHER, SELFPAY | END 2023-08-02 16:53 | disposition home or self-care (01) | LOC: HO.LNP 16:52 | PROVIDERS: Visit Provider Internal Medicine | DX: J03.90 Acute tonsillitis, unspecified (principal) | CPT/HCPCS: 87070; 87147 ==

== ENCOUNTER 2023-11-27 23:20 | Emergency (ER) | payer OTHER, SELFPAY ==
--- NOTE | 2023-11-27 | ECG_ITS ---
Test Reason : CHEST PAIBN Blood Pressure : / mmHG Vent. Rate : 073 BPM Atrial Rate : 073 BPM P-R Int : 146 ms QRS Dur : 086 ms QT Int : 398 ms P-R-T Axes : 060 032 029 degrees QTc Int : 438 ms Normal sinus rhythm Normal ECG When compared with ECG of 18-JUL-2021 09:24, No significant change was found Referred By: Generic ED Physician Electronically Signed By:JAYCEE BELL
[2023-11-27 23:24] VITALS: BP 150/75; PULSE 79; RESP 18; TEMP 36.5; O2SAT 97; BMI 36.0
[2023-11-27 23:59] LABS: Basophils Percent Auto 0.3 % (0-2); Eosinophils Absolute Auto 0.2 X10*3/uL (0.0-0.4); Hemoglobin 12.7 g/dl (12.0-16.0); Imm Gran Abs Auto 0.03 X10*3/uL (0.00-0.03); Imm Gran Pct Auto 0.3 % (0.0-0.4); Lymphocytes Absolute Auto 2.4 X10*3/uL (1.2-4.9); Lymphocytes Percent Auto 26.3 % (20-40); MANUAL DIFF FLAG NO; Mean Corpuscular HGB Conc 34.3 g/dl (31.0-35.0); Mean Corpuscular Hemoglobin 28.5 pg (27.0-33.0); Mean Corpuscular Volume 83.1 fL (80.0-98.0); Mean Platelet Volume 9.4 fL (9.4-12.3); Monocytes Absolute Auto 0.7 X10*3/uL (0.1-1.2); Monocytes Percent Auto 7.9 % (2-11); Neutrophils Absolute Auto 5.7 x10*3/uL (2.0-8.3); Neutrophils Percent Auto 63.2 % (45-73); Platelet Count 255 X10*3/uL (160-400); Red Blood Count 4.45 X10*6/uL (4.20-5.50); Red Cell Distribution Width 12.8 % (11.0-16.0); White Blood Count 9.1 X10*3/uL (4.8-10.8)
[2023-11-28 00:01] LABS: Appearance Urine Clear; Color Urine Yellow; Glucose Urine UA Negative (Negative); Leukocyte Esterase Urine Negative (Negative); Nitrite Urine Negative (Negative); PH 6.5 (5.0-9.0); UMIC TRIGGER UACC YES; Urine Blood Moderate (2+) (Negative); Urine Ketones Negative (Negative); Urine Protein Negative (Neg-Trace)
[2023-11-28 00:02] LABS: UPreg QC Valid YES; Urine Pregnancy NEGATIVE (NEGATIVE)
[2023-11-28 00:06] LABS: Bacteria Urine Trace (None Seen); Hyaline Casts Urine 0-2 /LPF (0-2); RBC Urine >20 /HPF (0-2); Squamous Epithelial Cell Urine 0-2 /HPF (0-2); WBC Urine 0-5 /HPF (0-5)
[2023-11-28 00:12] LABS: Alanine Aminotransferase 18 U/L (0-31); Albumin Level 4.2 g/dL (3.5-5.0); Alkaline Phosphatase 48 U/L (39-117); Anion Gap 14 (12-20); Aspartate Amino Transferase 16 U/L (5-31); Bilirubin Total 0.2 mg/dL (0.0-1.0); Blood Urea Nitrogen 11 mg/dL (9-16); Calcium 9.5 mg/dL (8.4-10.2); Carbon Dioxide 22 mmol/L (22-29); Chloride 109 mmol/L (96-108); Creatinine Clr Calc Pharmacy 131.8; Estimated Glomerular Filt Rate > 60; Glucose Random 119 mg/dL (60-115); Potassium 3.6 mmol/L (3.3-5.1); Sodium 141 mmol/L (135-145); Total Protein 7.6 g/dL (6.5-8.0)
[2023-11-28 00:20] LABS: Troponin-I High Sensitivity < 2.7 ng/L (<3.5-17.0)
--- NOTE | 2023-11-28 01:44 | PC.NURSE ---
pt did not notify any staff they were leaving facility. No answer when called for reassessment.
== END 2023-11-28 02:01 | disposition left against medical advice (07) ==
LOC: HO.ED 11-28 01:58
PROVIDERS: Emergency Provider Emergency Medicine; PCP Internal Medicine
DX: R07.9 Chest pain, unspecified (principal); F41.9 Anxiety disorder, unspecified
CPT/HCPCS: 36415; 80053; 81001; 81025; 84484; 85025; 93005; 99281; 99283

== ENCOUNTER 2023-12-17 09:22 | Emergency (ER) | payer OTHER, SELFPAY ==
[2023-12-17 09:28] VITALS: BP 139/66; PULSE 77; RESP 16; TEMP 36.7; O2SAT 97; BMI 36.3
--- NOTE | 2023-12-17 10:08 | ED.SKABFB ---
HPI - Skin/Abscess/Foreign Bdy General Chief complaint: Skin/Abscess/Foreign Body Stated complaint: Pain R armpit Time Seen by Provider: 12/17/23 09:44 Source: patient, RN notes reviewed and old records reviewed Mode of arrival: ambulatory Limitations: no limitations History of Present Illness ED Provider: Jordi Mejia PA-C HPI narrative: 23-year-old female with a history of right axillary abscess in the past requiring I&D 1 year ago who presents to the ER for evaluation of a tender mass in her right axillary area for the last 5 days. She states it is tender to touch, worse with movement of her arm. She states it is not as swollen as previous time, not as raised. She denies any fever or chills. She is not diabetic. She denies any history of hidradenitis suppurativa. complaint: abscess/boil Onset (ago): day(s) (5) Tetanus up to date: unsure Location: RUE Severity: moderate Quality: aching Pain Consistency: constant Relieving factors: other (Arm above her head) Exacerbating factors: palpation and movement Context: none Associated symptoms: denies other symptoms Treatments prior to arrival: none Related Data Previous Rx's ?Medication ?Instructions ?Recorded doxycycline hyclate 100 mg tablet 100 mg PO BID #14 tabs 09/20/22 mupirocin 2 % topical ointment 1 appl topical BID #15 grams 09/20/22 amoxicillin 500 mg tablet 1,000 mg (2 x 500 mg) PO DAILY 10 03/31/23 days #20 tabs cephalexin 500 mg capsule 500 mg PO Q6H 7 days #28 caps 12/17/23 doxycycline monohydrate 100 mg 100 mg PO BID #14 caps 12/17/23 capsule Allergies Allergy/AdvReac Type Severity Reaction Status Date / Time No Known Allergies Allergy Verified 12/17/23 09:29 [No Known Allergies*] Review of Systems Review of Systems: Yes all other systems are reviewed and are negative PMFSH Past Medical History Medical History No known health problems Physical Exam Vital Signs: Vital Signs: Last Vital Signs Temp 98.1 F 12/17/23 09:28 Pulse 77 12/17/23 09:28 Resp 16 12/17/23 09:28 BP 139/66 09/10/24 09:28 Pulse Ox 97 12/17/23 09:28 O2 Del Method Room Air 12/17/23 09:28 BMI result Body Mass Index 36.3 Appearance: Alert. Oriented X3. No acute distress. HEENT: normal inspection CVS: Normal heart rate and rhythm. Pulses normal. Respiratory: No respiratory distress. Skin: Skin warm and dry. Normal skin color. Normal skin turgor. No rashes. Extremities: Right axillary area with a 2 cm tender, firm mass without any overlying erythema, induration or fluctuance. No other lymphadenopathy appreciated in the inguinal region, left axillary region, cervical chains. Neuro: Oriented X 3. Grossly normal, nonfocal Medical Decision Making Medical Decision Making MDM Narrative: 23-year-old female presents to the ER for evaluation of right axillary pain with tender mass. Most consistent with an evolving abscess. It is not amenable to incision and drainage today. It could also be swollen lymph node although she does not have any other swollen lymph nodes on the rest of her exam. She denies any recent URI or illnesses. Will treat for evolving, early abscess. Will start on antibiotics, advised to use warm compresses several times per day. She was given return precautions. Stable for discharge home with antibiotics. Differential Diagnosis Differential Diagnoses: The differential diagnosis associated with the presentation includes Abscess, hidradenitis suppurativa, lymphadenopathy, lymphadenitis, malignancy External Record Review External record reviewed: Outpatient record, Prior outpatient labs and Prior outpatient radiology Tests considered The following testing was considered but not selected: Considered ultrasound of the area however low clinical suspicion for drainable abscess today Prescription Management I considered prescription management with: Pain Medication and Antibiotic Critical Care Time Critical Care Time Critical Care Time: No Discharge Plan Discharge Clinical Impression: Abscess of axilla, right Patient Disposition: Home, Self-Care Instructions: Abscess (ED) Additional Instructions: Take the prescribed antibiotics as directed, complete the entire course and do not miss any doses Use warm compresses to the area 4-5 times per day to the area Follow up with your primary care doctor If you develop new or worsening symptoms call 911 or come back to the ER for further evaluation. Prescriptions: New doxycycline monohydrate 100 mg capsule 100 mg PO BID Qty: 14 0RF cephalexin 500 mg capsule 500 mg PO Q6H 7 Days Qty: 28 0RF No Action amoxicillin 500 mg tablet 1,000 mg PO DAILY 10 Days Qty: 20 0RF doxycycline hyclate 100 mg tablet 100 mg PO BID Qty: 14 0RF mupirocin 2 % ointment 1 appl topical BID Qty: 15 0RF Referrals: [facility] [Provider Group] [facility] [place] [facility] [Provider Group] [facility] [place] [facility],[place] [Provider Group] Kavita Castro MD [Primary Care Provider] - Print Language: Romanian
[2023-12-17 10:24] VITALS: BP 139/66; PULSE 77; RESP 16; TEMP 36.7; O2SAT 97
== END 2023-12-17 10:24 | disposition home or self-care (01) ==
LOC: HO.ED 10:21
PROVIDERS: Emergency Provider Emergency Medicine Emergency Medical Services; PCP Internal Medicine
DX: L02.411 Cutaneous abscess of right axilla (principal)
CPT/HCPCS: 99282; 99283